=== PATIENT | female | born 1945 | race Caucasian/White ===

== ENCOUNTER 2016-11-26 03:54 | Emergency (ER) | payer OTHER ==
[~2016-11-26] VITALS: Ht 160 cm; Wt 81.6 kg
[2016-11-26 03:54] VITALS: BP_SYST 130
[2016-11-26] MEDS ORDERED: ONDANSETRON HCL 4 MG/2 ML VIAL IVP ONE (04:15)
[2016-11-26] MEDS ORDERED: NITROGLYCERIN 0.4 MG TAB.SUBL SL ONE (04:15)
[2016-11-26] MEDS ORDERED: HYDR-3606 PO (04:16)
[2016-11-26] MEDS ORDERED: SIMV40TA2 PO (04:16)
[2016-11-26] MEDS ORDERED: DIPHENHYDRAMINE INJ 50 MG/ML VIAL IVP ONE ×2 (04:45→06:30)
[2016-11-26] MEDS ORDERED: MORPHINE 2 MG/ML INJ. SYRINGE IVP ONE ×3 (04:45→06:30)
[2016-11-26] MEDS ORDERED: NS 250 ML IV ONE (04:45)
[2016-11-26 04:47] LABS: BASOPHILS # (AUTO) 0.1 K/uL (0.0-0.2); BASOPHILS % (AUTO) 1.6 % (0.0-2.0); EOSINOPHILS # (AUTO) 0.2 K/uL (0.0-0.4); HEMATOCRIT 38.4 % (36-48); HEMOGLOBIN 12.7 g/dL (12.0-16.0); LYMPHOCYTES # (AUTO) 2.2 K/uL (1.0-5.5); LYMPHOCYTES % (AUTO) 33.8 % (20.5-51.5); MEAN CORPUSCULAR HEMOGLOBIN 28 pg (27-31); MEAN CORPUSCULAR HGB CONC 33 % (32-36); MEAN CORPUSCULAR VOLUME 84 fL (79.0-98.0); MONOCYTES # (AUTO) 0.7 K/uL (0.0-1.0); MONOCYTES % (AUTO) 10.4 % (1.7-9.3); NEUTROPHILS # (AUTO) 3.3 K/uL (1.8-7.7); NEUTROPHILS % (AUTO) 51.2 % (40.0-70.0); RED BLOOD CELL COUNT(AUTO) 4.56 MIL/uL (4.2-6.2); RED CELL DISTRIBUTION WIDTH 13.8 % (9.0-15.0); WHITE BLOOD COUNT (AUTO) 6.5 K/uL (4.8-10.8)
[2016-11-26 04:51] LABS: CREATININE 0.96 mg/dL (0.55-1.30)
[2016-11-26 04:55] LABS: ALBUMIN 3.5 g/dL (3.4-4.8); TOTAL BILIRUBIN 0.5 mg/dL (0.0-1.0); TOTAL PROTEIN, SERUM 7.3 g/dL (6.4-8.3)
[2016-11-26 05:02] LABS: PLATELET COUNT (AUTO) 51 K/uL (130-430); PROTHROMBIN TIME 10.7 SECS (9.5-12.5)
[2016-11-26 05:39] LABS: BILIRUBIN,URINE NEGATIVE (NEGATIVE); BLOOD, URINE NEGATIVE (NEGATIVE); CLARITY/URINE CLEAR (CLEAR); COLOR,URINE YELLOW (YELLOW); GLUCOSE,URINE NEGATIVE (NEGATIVE); KETONES,URINE NEGATIVE (NEGATIVE); LEUKOCYTE ESTERASE ,URINE 2+ (NEGATIVE); NITRITE, URINE NEGATIVE (NEGATIVE); PROTEIN URINE NEGATIVE (NEGATIVE); UROBILINOGEN,URINE 0.2 (0.2-1.0)
[2016-11-26 06:05] LABS: BACTERIA,URINE FEW /HPF (None Seen); MUCUS,URINE None Seen /LPF (None Seen); RBC,URINE NONE SEEN /HPF (0-3); WBC,URINE 20-50 /HPF (0-3)
[2016-11-26] MEDS ORDERED: NITROFURANTOIN MONOHYD/M-CRYST 100 MG CAPSULE PO ONE (06:30)
[2016-11-26] MEDS ORDERED: DIPHENHYDRAMINE INJ 50 MG/ML VIAL ONE (06:38)
[2016-11-26 06:50] VITALS: BP_SYST 106
== END 2016-11-26 06:50 | disposition home or self-care (01) ==
LOC: SED 03:54
DX: R07.89 Other chest pain (principal); R51 Headache; Z88.6 Allergy status to analgesic agent
CPT/HCPCS: 36415; 70450; 71010; 80053; 80061; 81000; 83880; 84484; 85025; 85379; 85610; 85730; 87086; 93005; 96361; 96374; 96375; 96376; 99285; J1200; J2270; J2405; J7050

== ENCOUNTER 2018-04-13 23:12 | Inpatient (IN) | payer OTHER ==
[~2018-04-13] VITALS: Ht 160 cm; Wt 79.4 kg
[~2018-04-13 23:12] MED LIST: HYDR-3606 PO; SIMV40TA2 PO
[2018-04-13 23:17] VITALS: BP_SYST 123
[2018-04-14 00:14] LABS: ALANINE AMINOTRANSFERASE 12 U/L (12-78); ALBUMIN 3.1 g/dL (3.4-4.8); ANION GAP 10 (5-15); ASPARTATE AMINOTRANSFERASE 14 U/L (10-37); CALCIUM 9.2 mg/dL (8.4-11.0); CHLORIDE 105 mmol/L (98-107); CREATININE 1.04 mg/dL (0.55-1.30); GLUCOSE 114 mg/dL (70-99); POTASSIUM 3.6 mmol/L (3.5-5.1); SODIUM SERUM 141 mmol/L (136-145); TOTAL BILIRUBIN 0.5 mg/dL (0.0-1.0); UREA NITROGEN, BLOOD 13 mg/dL (8-21)
[2018-04-14 00:38] LABS: BASOPHILS % (AUTO) 0.5 % (0.0-2.0); EOSINOPHILS # (AUTO) 0.1 K/uL (0.0-0.4); EOSINOPHILS % (AUTO) 0.9 % (0.0-4.0); HEMATOCRIT 38.5 % (36-48); HEMOGLOBIN 12.2 g/dL (12.0-16.0); LYMPHOCYTES # (AUTO) 1.5 K/uL (1.0-5.5); LYMPHOCYTES % (AUTO) 17.5 % (20.5-51.5); MEAN CORPUSCULAR HEMOGLOBIN 26 pg (27-31); MEAN CORPUSCULAR HGB CONC 32 % (32-36); MEAN CORPUSCULAR VOLUME 83 fL (79.0-98.0); MONOCYTES # (AUTO) 1.1 K/uL (0.0-1.0); MONOCYTES % (AUTO) 12.8 % (1.7-9.3); NEUTROPHILS # (AUTO) 6.1 K/uL (1.8-7.7); RED BLOOD CELL COUNT(AUTO) 4.64 MIL/uL (4.2-6.2); RED CELL DISTRIBUTION WIDTH 13.5 % (9.0-15.0); WHITE BLOOD COUNT (AUTO) 8.8 K/uL (4.8-10.8)
[2018-04-14] MEDS ORDERED: MORPHINE 2 MG/ML INJ. SYRINGE IM ONE (00:45)
[2018-04-14 00:50] LABS: PLATELET COUNT (AUTO) 44 K/uL (130-430)
[2018-04-14 00:55] LABS: NEUTROPHILS % (AUTO) 68.3 % (40.0-70.0)
[2018-04-14] MEDS ORDERED: MORPHINE 4 MG/ML INJ. SYRINGE IVP ONE ×2 (01:15→03:15)
[2018-04-14 01:20] LABS: INR 1.1 (0.8-1.2); PROTHROMBIN TIME 10.7 SECS (9.5-12.5)
[2018-04-14] MEDS ORDERED: IOHEXOL 350 mgI/mL, 150 ML INFUS..BTL IV ONE (02:25)
[2018-04-14] MEDS ORDERED: cefTRIAXone 1 GM in D5W 50 ML IV ONE (03:00)
[2018-04-14] MEDS ORDERED: cefTRIAXone 1 GM VIAL ONE (03:15)
[2018-04-14 04:17] VITALS: BP_SYST 120
[2018-04-14] MEDS ORDERED: ALBUTEROL SULFATE 0.083% 2.5 MG/3 ML VIAL.NEB INH PRN (08:00)
[2018-04-14] MEDS ORDERED: ACETAMINOPHEN 325 MG TABLET PO PRN (08:00)
[2018-04-14 09:43] VITALS: BP_SYST 120
[2018-04-14 11:05] LABS: CHOLESTEROL 137 mg/dL (<200); HDL CHOLESTEROL 49 mg/dL (>55); LDL CHOLESTEROL 92 mg/dL (<100); TRIGLYCERIDES 46 mg/dL (30-150)
[2018-04-14] MEDS: MORPHINE 2 MG/ML INJ. SYRINGE IVP PRN ×2 (11:14→16:39)
[2018-04-14 12:02] VITALS: BP_SYST 126
[2018-04-14 16:02] VITALS: BP_SYST 115
[2018-04-14 20:20] VITALS: BP_SYST 120
[2018-04-14] MEDS: FAMOTIDINE 20 MG TABLET PO SCH (21:28)
[2018-04-14] MEDS: SIMVASTATIN 40 MG TABLET PO SCH (21:29)
[2018-04-14] MEDS: methylPREDNISolone SOD SUCC/PF 62.5 MG/ML VIAL IVP SCH (21:30)
[2018-04-14 23:36] VITALS: BP_SYST 127
[2018-04-15] MEDS: methylPREDNISolone SOD SUCC/PF 62.5 MG/ML VIAL IVP SCH ×3 (05:51→21:08)
[2018-04-15 07:04] LABS: BASOPHILS % (AUTO) 0.1 % (0.0-2.0); HEMATOCRIT 39.1 % (36-48); HEMOGLOBIN 12.6 g/dL (12.0-16.0); LYMPHOCYTES # (AUTO) 0.5 K/uL (1.0-5.5); LYMPHOCYTES % (AUTO) 8.1 % (20.5-51.5); MEAN CORPUSCULAR HEMOGLOBIN 27 pg (27-31); MEAN CORPUSCULAR HGB CONC 32 % (32-36); MEAN CORPUSCULAR VOLUME 82 fL (79.0-98.0); MONOCYTES % (AUTO) 0.5 % (1.7-9.3); NEUTROPHILS # (AUTO) 5.1 K/uL (1.8-7.7); PLATELET COUNT (AUTO) 50 K/uL (130-430); RED BLOOD CELL COUNT(AUTO) 4.75 MIL/uL (4.2-6.2); RED CELL DISTRIBUTION WIDTH 13.8 % (9.0-15.0); WHITE BLOOD COUNT (AUTO) 5.6 K/uL (4.8-10.8)
[2018-04-15 07:29] LABS: ALANINE AMINOTRANSFERASE 14 U/L (12-78); ALBUMIN 2.6 g/dL (3.4-4.8); ANION GAP 8 (5-15); ASPARTATE AMINOTRANSFERASE 12 U/L (10-37); CALCIUM 9.3 mg/dL (8.4-11.0); CHLORIDE 103 mmol/L (98-107); CREATININE 0.78 mg/dL (0.55-1.30); GLUCOSE 167 mg/dL (70-99); POTASSIUM 4.1 mmol/L (3.5-5.1); SODIUM SERUM 134 mmol/L (136-145); TOTAL BILIRUBIN 0.4 mg/dL (0.0-1.0); UREA NITROGEN, BLOOD 11 mg/dL (8-21)
[2018-04-15 08:00] VITALS: BP_SYST 123
[2018-04-15] MEDS: FAMOTIDINE 20 MG TABLET PO SCH ×2 (08:08→20:35)
[2018-04-15 10:22] LABS: NEUTROPHILS % (AUTO) 91.3 % (40.0-70.0)
[2018-04-15 11:34] VITALS: BP_SYST 139
[2018-04-15 15:15] VITALS: BP_SYST 142
[2018-04-15 19:40] VITALS: BP_SYST 140
[2018-04-15] MEDS: SIMVASTATIN 40 MG TABLET PO SCH (20:35)
[2018-04-16 00:18] VITALS: BP_SYST 117
[2018-04-16] MEDS: methylPREDNISolone SOD SUCC/PF 62.5 MG/ML VIAL IVP SCH (05:40)
[2018-04-16 07:40] VITALS: BP_SYST 153
[2018-04-16 08:00] VITALS: BP_SYST 155
[2018-04-16] MEDS: FAMOTIDINE 20 MG TABLET PO SCH ×2 (09:18→20:44)
[2018-04-16 10:06] LABS: HEMATOCRIT 42.5 % (36-48); HEMOGLOBIN 13.8 g/dL (12.0-16.0); LYMPHOCYTES # (AUTO) 0.9 K/uL (1.0-5.5); LYMPHOCYTES % (AUTO) 5.3 % (20.5-51.5); MEAN CORPUSCULAR HEMOGLOBIN 27 pg (27-31); MEAN CORPUSCULAR HGB CONC 32 % (32-36); MEAN CORPUSCULAR VOLUME 82 fL (79.0-98.0); MONOCYTES # (AUTO) 0.6 K/uL (0.0-1.0); MONOCYTES % (AUTO) 3.7 % (1.7-9.3); NEUTROPHILS # (AUTO) 14.7 K/uL (1.8-7.7); PLATELET COUNT (AUTO) 55 K/uL (130-430); RED BLOOD CELL COUNT(AUTO) 5.19 MIL/uL (4.2-6.2); RED CELL DISTRIBUTION WIDTH 13.8 % (9.0-15.0); WHITE BLOOD COUNT (AUTO) 16.2 K/uL (4.8-10.8)
[2018-04-16] MEDS ORDERED: PREDNISONE 20 MG TABLET PO ONE (10:15)
[2018-04-16] MEDS: ONDANSETRON HCL 4 MG/2 ML VIAL IVP PRN ×2 (10:30→14:43)
[2018-04-16 12:04] VITALS: BP_SYST 145
[2018-04-16] MEDS: METOCLOPRAMIDE HCL 10 MG/2 ML VIAL IVP PRN (15:53)
[2018-04-16 16:07] VITALS: BP_SYST 139
[2018-04-16 19:45] VITALS: BP_SYST 153
[2018-04-16] MEDS: SIMVASTATIN 40 MG TABLET PO SCH (20:44)
[2018-04-16] MEDS: PREDNISONE 20 MG TABLET PO SCH (21:17)
[2018-04-17 01:25] VITALS: BP_SYST 153
[2018-04-17] MEDS: METOCLOPRAMIDE HCL 10 MG/2 ML VIAL IVP PRN ×2 (05:52→14:21)
[2018-04-17 07:06] LABS: BASOPHILS % (AUTO) 0.1 % (0.0-2.0); EOSINOPHILS % (AUTO) 0.1 % (0.0-4.0); HEMATOCRIT 42.2 % (36-48); HEMOGLOBIN 13.7 g/dL (12.0-16.0); LYMPHOCYTES # (AUTO) 1.2 K/uL (1.0-5.5); LYMPHOCYTES % (AUTO) 9.2 % (20.5-51.5); MEAN CORPUSCULAR HEMOGLOBIN 27 pg (27-31); MEAN CORPUSCULAR HGB CONC 32 % (32-36); MEAN CORPUSCULAR VOLUME 84 fL (79.0-98.0); MONOCYTES # (AUTO) 1.3 K/uL (0.0-1.0); MONOCYTES % (AUTO) 9.7 % (1.7-9.3); NEUTROPHILS # (AUTO) 10.8 K/uL (1.8-7.7); NEUTROPHILS % (AUTO) 80.9 % (40.0-70.0); PLATELET COUNT (AUTO) 52 K/uL (130-430); RED BLOOD CELL COUNT(AUTO) 5.03 MIL/uL (4.2-6.2); RED CELL DISTRIBUTION WIDTH 13.6 % (9.0-15.0); WHITE BLOOD COUNT (AUTO) 13.3 K/uL (4.8-10.8)
[2018-04-17 08:00] VITALS: BP_SYST 137
[2018-04-17] MEDS ORDERED: DIATR MEGLU/DIATRIZ SOD 30 ML SOLUTION PO ONE (08:44)
[2018-04-17] MEDS: ONDANSETRON HCL 4 MG/2 ML VIAL IVP PRN (08:50)
[2018-04-17] MEDS: PREDNISONE 20 MG TABLET PO SCH ×2 (08:58→20:52)
[2018-04-17] MEDS: FAMOTIDINE 20 MG TABLET PO SCH ×2 (08:58→20:52)
[2018-04-17 09:08] LABS: ANION GAP 11 (5-15); CALCIUM 9.2 mg/dL (8.4-11.0); CHLORIDE 103 mmol/L (98-107); CREATININE 0.96 mg/dL (0.55-1.30); GLUCOSE 147 mg/dL (70-99); POTASSIUM 3.8 mmol/L (3.5-5.1); SODIUM SERUM 139 mmol/L (136-145); UREA NITROGEN, BLOOD 14 mg/dL (8-21)
[2018-04-17 09:13] LABS: ALANINE AMINOTRANSFERASE 14 U/L (12-78); ALBUMIN 2.8 g/dL (3.4-4.8); ASPARTATE AMINOTRANSFERASE 15 U/L (10-37); TOTAL BILIRUBIN 0.4 mg/dL (0.0-1.0)
[2018-04-17] MEDS: D5/0.45 NS 1,000 ML IV SCH (09:31)
[2018-04-17] MEDS ORDERED: IOHEXOL 100 ML IV ONE (11:16)
[2018-04-17 12:47] VITALS: BP_SYST 160
[2018-04-17 16:47] VITALS: BP_SYST 140
[2018-04-17 19:40] VITALS: BP_SYST 150
[2018-04-17] MEDS: SIMVASTATIN 40 MG TABLET PO SCH (20:52)
[2018-04-18 00:18] VITALS: BP_SYST 129
[2018-04-18] MEDS: D5/0.45 NS 1,000 ML IV SCH (04:49)
[2018-04-18 07:20] LABS: BASOPHILS % (AUTO) 0.4 % (0.0-2.0); EOSINOPHILS % (AUTO) 0.1 % (0.0-4.0); HEMATOCRIT 41.3 % (36-48); HEMOGLOBIN 13.1 g/dL (12.0-16.0); LYMPHOCYTES # (AUTO) 1.3 K/uL (1.0-5.5); LYMPHOCYTES % (AUTO) 12.2 % (20.5-51.5); MEAN CORPUSCULAR HEMOGLOBIN 26 pg (27-31); MEAN CORPUSCULAR HGB CONC 32 % (32-36); MEAN CORPUSCULAR VOLUME 83 fL (79.0-98.0); MONOCYTES % (AUTO) 9.3 % (1.7-9.3); RED BLOOD CELL COUNT(AUTO) 4.98 MIL/uL (4.2-6.2); RED CELL DISTRIBUTION WIDTH 13.6 % (9.0-15.0); WHITE BLOOD COUNT (AUTO) 10.3 K/uL (4.8-10.8)
[2018-04-18 07:25] LABS: PLATELET COUNT (AUTO) 41 K/uL (130-430)
[2018-04-18 07:38] LABS: ANION GAP 9 (5-15); CHLORIDE 100 mmol/L (98-107); GLUCOSE 138 mg/dL (70-99); SODIUM SERUM 134 mmol/L (136-145); UREA NITROGEN, BLOOD 14 mg/dL (8-21)
[2018-04-18 07:49] LABS: ALANINE AMINOTRANSFERASE 15 U/L (12-78); ALBUMIN 2.9 g/dL (3.4-4.8); ASPARTATE AMINOTRANSFERASE 15 U/L (10-37); LIPASE 190 U/L (73-393); TOTAL BILIRUBIN 0.5 mg/dL (0.0-1.0)
[2018-04-18 08:00] VITALS: BP_SYST 149
[2018-04-18] MEDS: PREDNISONE 20 MG TABLET PO SCH (09:00)
[2018-04-18] MEDS: FAMOTIDINE 20 MG TABLET PO SCH (09:00)
[2018-04-18] MEDS ORDERED: MIDAZOLAM HCL 5 MG/5 ML VIAL ONE (10:51)
[2018-04-18] MEDS ORDERED: SIMETHICONE 40 MG/0.6 ML ML ONE (10:51)
[2018-04-18] MEDS ORDERED: MEPERIDINE HCL/PF 25 MG/ML DISP.SYRIN ONE ×2 (10:51→12:59)
[2018-04-18] MEDS ORDERED: MEPERIDINE HCL/PF 100 MG/ML AMP ONE (11:00)
[2018-04-18 12:34] VITALS: BP_SYST 153
[2018-04-18] MEDS ORDERED: PANTOPRAZOLE SODIUM 40 MG TAB PO ONE (13:30)
[2018-04-18 16:19] VITALS: BP_SYST 156
[2018-04-18 16:21] VITALS: BP_SYST 156
[2018-04-19] MEDS ORDERED: PANTOPRAZOLE SODIUM 40 MG TAB PO SCH (06:00)
== END 2018-04-18 17:17 | DRG 813 ==
LOC: SED 23:12 → STU 04-14 03:49 → SMU 04-15 15:19
PROVIDERS: ADMIT Internal Medicine; ATTEND Internal Medicine
PROC: 0DB68ZX Excision of Stomach, Via Natural or Artificial Opening Endoscopic, Diagnostic (ICD-10-PCS; 2018-04-18)
PROC: 0DB98ZX Excision of Duodenum, Via Natural or Artificial Opening Endoscopic, Diagnostic (ICD-10-PCS; principal; 2018-04-18 13:00)
DX: D69.6 Thrombocytopenia, unspecified (principal); M32.8 Other forms of systemic lupus erythematosus; I10 Essential (primary) hypertension; E78.5 Hyperlipidemia, unspecified; G89.4 Chronic pain syndrome; K29.70 Gastritis, unspecified, without bleeding; E78.00 Pure hypercholesterolemia, unspecified; Z96.653 Presence of artificial knee joint, bilateral; M79.2 Neuralgia and neuritis, unspecified; K21.9 Gastro-esophageal reflux disease without esophagitis; E66.9 Obesity, unspecified; Z90.710 Acquired absence of both cervix and uterus; Z85.038 Personal history of other malignant neoplasm of large intestine; Z68.31 Body mass index [BMI] 31.0-31.9, adult; Z88.6 Allergy status to analgesic agent
CPT/HCPCS: 36415; 43239; 70450-TC; 71045; 71275; 72170-TC; 73560-TC; 76700-TC; 80053; 80061; 82550-TC; 83605; 83690-TC; 83880; 84484; 85025; 85379; 85610-TC; 85651-TC; 85730-TC; 86022; 86038; 86140; 86886; 86900; 86901; 87040-TC; 87081; 88305; 88312; 88313; 93005; 93306; 93880; 96365; 96375; 97110-GP; 97530-GP; 99285; J0696; J2175; J2250; J2270; J2405; J2765; J2930; J7040; J7512; Q9964; Q9967

== ENCOUNTER 2018-05-18 07:59 | Emergency (ER) | payer OTHER ==
[~2018-05-18] VITALS: Ht 162.6 cm; Wt 74.8 kg
[2018-05-18 07:59] VITALS: BP_SYST 120
[2018-05-18] MEDS ORDERED: PROPOFOL DRIP 100 ML IV ONE (08:45)
[2018-05-18] MEDS: NACL 0.9% 1,000 ML IV ONE (08:59)
[2018-05-18 09:12] LABS: ANION GAP 8 (5-15); CALCIUM 8.8 mg/dL (8.4-11.0); CHLORIDE 107 mmol/L (98-107); CREATININE 0.83 mg/dL (0.55-1.30); GLUCOSE 126 mg/dL (70-99); POTASSIUM 3.2 mmol/L (3.5-5.1); SODIUM SERUM 141 mmol/L (136-145); UREA NITROGEN, BLOOD 11 mg/dL (8-21)
[2018-05-18] MEDS: HYDROcodone/ACETAMIN 5-325 MG TAB (NORCO/ VICODIN) PO ONE (09:12)
[2018-05-18 09:16] LABS: BASOPHILS # (AUTO) 0.1 K/uL (0.0-0.2); BASOPHILS % (AUTO) 0.8 % (0.0-2.0); EOSINOPHILS % (AUTO) 0.6 % (0.0-4.0); HEMATOCRIT 33.4 % (36-48); HEMOGLOBIN 10.8 g/dL (12.0-16.0); LYMPHOCYTES % (AUTO) 12.8 % (20.5-51.5); MEAN CORPUSCULAR HEMOGLOBIN 27 pg (27-31); MEAN CORPUSCULAR HGB CONC 32 % (32-36); MEAN CORPUSCULAR VOLUME 83 fL (79.0-98.0); MONOCYTES # (AUTO) 1.3 K/uL (0.0-1.0); MONOCYTES % (AUTO) 15.5 % (1.7-9.3); NEUTROPHILS # (AUTO) 5.8 K/uL (1.8-7.7); NEUTROPHILS % (AUTO) 70.3 % (40.0-70.0); PLATELET COUNT (AUTO) 299 K/uL (130-430); RED CELL DISTRIBUTION WIDTH 15.4 % (9.0-15.0); WHITE BLOOD COUNT (AUTO) 8.2 K/uL (4.8-10.8)
[2018-05-18 09:17] LABS: ALANINE AMINOTRANSFERASE 20 U/L (12-78); ALBUMIN 2.4 g/dL (3.4-4.8); ASPARTATE AMINOTRANSFERASE 16 U/L (10-37); TOTAL BILIRUBIN 0.6 mg/dL (0.0-1.0)
[2018-05-18 09:54] LABS: BILIRUBIN,URINE 1+ (NEGATIVE); BLOOD, URINE NEGATIVE (NEGATIVE); CLARITY/URINE CLEAR (CLEAR); COLOR,URINE YELLOW (YELLOW); GLUCOSE,URINE NEGATIVE (NEGATIVE); KETONES,URINE 1+ (NEGATIVE); LEUKOCYTE ESTERASE ,URINE NEGATIVE (NEGATIVE); NITRITE, URINE NEGATIVE (NEGATIVE); PH,URINE 5.5 (5.0-8.0); PROTEIN URINE TRACE (NEGATIVE); UROBILINOGEN,URINE 0.2 (0.2-1.0)
[2018-05-18] MEDS: MORPHINE 4 MG/ML INJ. SYRINGE IVP ONE (10:03)
[2018-05-18 10:05] LABS: BACTERIA,URINE FEW /HPF (None Seen); RBC,URINE 0-3 /HPF (0-3); WBC,URINE 0-3 /HPF (0-3)
[2018-05-18 10:06] LABS: MUCUS,URINE 1+ /LPF (None Seen)
[2018-05-18 14:20] VITALS: BP_SYST 121
== END 2018-05-18 14:19 ==
LOC: SED 07:59
DX: R53.1 Weakness (principal); R62.7 Adult failure to thrive; R29.6 Repeated falls; E78.00 Pure hypercholesterolemia, unspecified; Z85.038 Personal history of other malignant neoplasm of large intestine; Z88.6 Allergy status to analgesic agent
CPT/HCPCS: 36415; 71045; 80053; 81000; 83605; 85025; 87040; 93005; 96374; 99284; J2270; J7030